=== PATIENT | female | born 1945 | race Caucasian/White ===

== ENCOUNTER → 2019-08-27 | Outpatient (CLI) | payer OTHER ==
[2019-08-27 19:55] LABS: Percent Saturation 11.1 % (15.0-50.0)
== END | disposition home or self-care (01) ==
LOC: LAB 15:20 → LAB SHORT 15:20
PROVIDERS: Internal Medicine Hematology & Oncology
DX: D51.8 Other vitamin B12 deficiency anemias (principal); R53.81 Other malaise; R53.83 Other fatigue
CPT/HCPCS: 82607; 82728; 82746; 83540; 83550

== ENCOUNTER → 2019-09-10 | Outpatient (CLI) | payer OTHER ==
[2019-09-11 13:51] LABS: Stool Occult Bld Immuno 1 Negative (NEGATIVE)
== END | disposition home or self-care (01) ==
LOC: LAB 10:00 → LAB SHORT 10:00 → LAB FUT 05-11 08:10
PROVIDERS: Nurse Practitioner Family
DX: Z12.11 Encounter for screening for malignant neoplasm of colon (principal)
CPT/HCPCS: G0328

== ENCOUNTER 2020-01-11 17:44 | Inpatient (IN) | payer OTHER ==
[~2020-01-11] VITALS: Ht 154.9 cm; Wt 78.0 kg
[2020-01-11] MEDS ORDERED: XANAX0.25 MG PO (18:09)
[2020-01-11] MEDS ORDERED: CODACE30 PO (18:10)
[2020-01-11 18:26] LABS: BASOPHILS ABSOLUTE AUTO 0.02 K/mm3 (0.00-0.23); BASOPHILS PERCENT AUTO 0 % (0-2); EOSINOPHILS ABSOLUTE AUTO 0.07 K/mm3 (0.00-0.68); EOSINOPHILS PERCENT AUTO 1 % (0-6); Hematocrit 43.9 % (33.0-51.0); Hemoglobin 13.5 g/dL (11.5-16.0); IMMATURE GRAN ABSOLUTE AUTO 0.03 K/mm3 (0.00-0.10); IMMATURE GRAN PERCENT AUTO 0 % (0-1); LYMPHOCYTES ABSOLUTE AUTO 0.63 K/mm3 (0.84-5.20); LYMPHOCYTES PERCENT AUTO 8 % (21-46); MONOCYTES ABSOLUTE AUTO 0.31 K/mm3 (0.16-1.47); MONOCYTES PERCENT AUTO 4 % (4-13); Mean Corpuscular HGB 31.1 pg (26.0-34.0); Mean Corpuscular HGB Conc 30.8 g/dL (31.5-36.5); Mean Corpuscular Volume 101 fL (80-100); Mean Platelet Volume 10.8 fL (9.1-12.4); NEUTROPHILS ABSOLUTE AUTO 6.49 K/mm3 (1.96-9.15); NEUTROPHILS PERCENT AUTO 86 % (41-73); Platelet Count 273 K/mm3 (150-400); Red Blood Cell Count 4.34 M/mm3 (3.80-5.20); White Blood Cell Count 7.55 K/mm3 (4.00-11.30)
[2020-01-11 18:44] LABS: Alanine Aminotransfer (ALT/SGP 32 U/L (12-78); Albumin/Globulin Ratio 0.8 (0.8-1.8); Alk Phos 151 U/L (50-136); Anion Gap 6 mmol/L (6-16); Aspartate Aminotrans (AST/SGOT 30 U/L (12-37); Bilirubin, Total 1.7 mg/dL (0.1-1.0); Blood Urea Nitrogen 24 mg/dL (8-24); Bun/Creatinine Ratio 34.7 (12.0-20.0); CO2, Blood 29 mmol/L (21-32); Calcium, Blood 9.3 mg/dL (8.5-10.1); Chloride, Blood 104 mmol/L (98-108); Creatinine, Blood 0.69 mg/dL (0.40-1.00); Globulin, Blood 3.9 g/dL (2.2-4.0); Glomerular Filtration Rate >60 (60-); Glucose, Blood 159 mg/dL (70-99); Potassium, Blood 3.8 mmol/L (3.5-5.5); Sodium, Blood 139 mmol/L (136-145); Total Protein, Blood 6.9 g/dL (6.4-8.2); Troponin I <0.015 ng/mL (0.000-0.040)
[2020-01-11 19:07] LABS: Source, Urine Catheter
[2020-01-11 19:12] LABS: Bilirubin, Urine Neg (Neg); Blood, Urine Neg (Neg); Glucose Qualitative, Urine Neg (Neg); Ketones, Urine Neg (Neg); Leukocyte Esterase, Urine Neg (Neg); Nitrite, Urine Neg (Neg); Protein, Urine Neg (Neg); Urobilinogen, Urine NORM (Normal)
[2020-01-11 19:13] LABS: Appearance, Urine Clear (Clear); Color, Urine Yellow (P-Yellow)
--- NOTE | 2020-01-11 22:22 | NUR ---
Transfer report from Jojo GRANT in ER on 74 year old PT being admitted with acute CHF, Acute resp failure with hypoxia, & rt pleural effusion. PT will be on tele & has johnson cath placed in ER for diruretics, strict I & O , bedrest . Has US guided throracerntesis rt pleural effusion ordered ECHO, PT OT Pallative care, await admission.
[2020-01-12] MEDS ORDERED: TOPI50 PO (01:25)
[2020-01-12] MEDS ORDERED: METOPROLOL SUCC25 MG PO (01:25)
[2020-01-12] MEDS ORDERED: ENAL20 PO (01:25)
[2020-01-12] MEDS ORDERED: FERROUSUL325 MG PO (01:25)
[2020-01-12] MEDS ORDERED: VITAMIN D-32000 UNIT PO (01:25)
[2020-01-12] MEDS ORDERED: Buspirone HCl5 MG PO (01:25)
[2020-01-12 05:07] LABS: Anion Gap 3 mmol/L (6-16); Blood Urea Nitrogen 21 mg/dL (8-24); Bun/Creatinine Ratio 30.1 (12.0-20.0); CO2, Blood 34 mmol/L (21-32); Calcium, Blood 8.6 mg/dL (8.5-10.1); Chloride, Blood 105 mmol/L (98-108); Glomerular Filtration Rate >60 (60-); Glucose, Blood 100 mg/dL (70-99); Potassium, Blood 3.8 mmol/L (3.5-5.5); Sodium, Blood 142 mmol/L (136-145)
[2020-01-12 08:42] LABS: International Normalized Ratio 1.07; Prothrombin Time Results 11.4 Sec (9.7-11.5)
[2020-01-12 11:33] LABS: Automated BF WBC Count 0.048 K/mm3 (0-999); Body Fluid WBC Count 48 /mm3 (0-999)
--- NOTE | 2020-01-12 11:42 | NUR ---
echocardiogram complete
[2020-01-12 11:53] LABS: Albumin, Body Fluid 0.8 g/dL
[2020-01-12 12:21] LABS: RBC Count, Body Fluid 78 /mm3 (0-0)
[2020-01-12 12:23] LABS: Total Cell Count, Body Fluid 100
[2020-01-12 12:24] LABS: Appearance, Body Fluid Clear (Clear); Color, Body Fluid L Yellow (None-Yellow)
--- NOTE | 2020-01-12 16:58 | NUR ---
[facility] TRANSFER PATIENT TRANSFERED TO [facility] DUE TO SEVERE AORTIC STENOSIS. REPORT CALLED TO SUYAPA GRANT AT [facility]. COUSIN BRANDY AND ALE ASTORGA INFORMED OF TRANSFER. PATIENT TRANSFERED VIA AMBULANCE.
[2020-01-12 23:24] LABS: Glucose, Body Fluid 116 mg/dL
[2020-01-12 23:26] LABS: Lactate Dehydrogenase, Body Fl 67 U/L
[2020-01-12 23:28] LABS: pH, Body Fluid 7.5
[2020-01-12 23:35] LABS: Protein, Body Fluid 1.5 g/dL
== END 2020-01-12 16:56 | disposition short-term general hospital (02) | DRG 291 ==
LOC: ER 17:44 → MEDS 22:43
PROVIDERS: Emergency Medicine; Internal Medicine; Student in an Organized Health Care Education/Training Program; ADMIT Internal Medicine
PROC: 0W993ZZ Drainage of Right Pleural Cavity, Percutaneous Approach (ICD-10-PCS; principal; 2020-01-12)
DX: I50.9 Heart failure, unspecified (principal); J96.01 Acute respiratory failure with hypoxia; E43 Unspecified severe protein-calorie malnutrition; I35.0 Nonrheumatic aortic (valve) stenosis; I95.2 Hypotension due to drugs; R63.4 Abnormal weight loss
CPT/HCPCS: 32555; 36415; 51702; 71045; 71046; 80048; 80053; 81003; 82042; 82945; 83615; 83880; 83986; 84157; 84443; 84484; 85025; 85610; 89051; 93005; 93010; 93306; 96374-59; 99285-25; A9270; J1940; J2270; P9041; U0002